=== PATIENT | female | born 1945 | race Caucasian/White ===

== ENCOUNTER → 2019-05-09 | Outpatient (CLI) | payer OTHER ==
[~2019-05-09] VITALS: Ht 172.7 cm; Wt 74.8 kg
[~2019-05-09] MED LIST: ALLEGRA60 MG PO; AMARYL4 MG PO; AMLODIPINE BESYL5 MG PO; ASPIRIN325 PO; BISOPROLOL-HCT1 EACH PO; CALCIUM 600 +1 EAC1 PO; DYAZIDE 37.5-21 EACH PO; ENALAPRIL MALEA20 MG PO; FEMARA2.5 MG PO; JANUVIA 50 MG T50 M1 PO; LEVOTHROID 00.075 M1 PO; LIPITOR 20 MG T20 M1 PO; LISINOPRIL20 MG PO; METFORMIN HCL500 MG PO; PLAVIX 75 MG TA75 M1 PO; PRILOSEC OTC20 MG PO; SIMVASTATIN80 MG PO; TOLTERODINE TART4 MG PO
[2019-05-09 07:09] VITALS: BP 170/84
[2019-05-09 07:15] LABS: HEMATOCRIT 42.2 % (37.0-47.0); HEMOGLOBIN 14.3 gm/dL (12.0-15.0); RBC 4.48 mil/uL (4.20-5.00); RDW 12.5 % (10.5-14.5); WBC 6.4 thou/uL (4.0-11.0)
[2019-05-09 07:24] LABS: CALCIUM 9.7 mg/dL (8.5-10.1); CREATININE 0.7 mg/dL (0.6-1.0); POTASSIUM 4.1 mmol/L (3.5-5.1)
--- NOTE | 2019-05-09 09:04 | EKG ---
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
--- NOTE | 2019-05-10 09:27 | H ---
[facility] [place] [address] HISTORY AND PHYSICAL Name: LUIZ LOVETT Room #: REG [facility]#: [id number] Admission: 05/09/19 Attend Phys: Mirian Spivey MD Discharge: Date of : 43 Report #: [id number] THIS REPORT FOR: //name// CC: MIRIAN Spivey FAM unknown DATE OF SERVICE: 05/09/2019 HISTORY OF PRESENT ILLNESS: The patient is a 73-year-old female, patient of Dr. Mirian Perdue, admitted for some progressive claudication and evidence of significant restenosis or progression of disease in the right SFA. Has had prior drug-coated balloon and atherectomy in 08/2015, moderate left-sided disease, also, some complaints of some chest pain, pressure, dyspnea with some typical and atypical features. He had mild 3-vessel coronary artery disease and a catheterization back in 2015. Longstanding diabetes, hypertension, continued smoking a pack a day. He has been compliant with medications, aspirin, atorvastatin, Plavix, Ziac, metformin, which has been held for this procedure, lisinopril 20, omeprazole, Januvia, Detrol. PAST MEDICAL HISTORY: Positive for CAD, peripheral vascular disease with prior right SFA intervention, diabetes, hypertension, COPD, continued tobacco use, DJD, lumpectomy, left mastectomy. SOCIAL HISTORY: She is , a pack a day smoker, some alcohol use socially. No illicit drug use, 3 cups of coffee a day. ALLERGIES: SULFA AND ANTIBIOTICS. FAMILY HISTORY: Mother of cancer. No premature CAD. PHYSICAL EXAMINATION: GENERAL: Pleasant, alert. VITAL SIGNS: Blood pressure 110/60. Pulse is 80. HEENT: Eyes reveal xanthelasmas. Pharynx is clear. NECK: Shows preserved upstrokes without JVD or bruits. LUNGS: Clear with prolonged expiratory phase. CARDIOVASCULAR: Distant heart sounds, S1, S2. ABDOMEN: Soft. No HSM or abdominal bruit. EXTREMITIES: No edema. Distal pulses cannot palpate the right DP or PT. Left is markedly diminished. SKIN: Warm and dry. There is no skin breakdown or ulcers. MUSCULOSKELETAL: Generalized arthritic changes. ASSESSMENT: 1. Peripheral vascular disease with progressive right lower extremity [facility] [address] [place] [address] HISTORY AND PHYSICAL Name: RACHELLLUIZ Ann Room #: [facility]#: [id number] Admission: 05/09/19 Attend Phys: Mirian Spivey MD Discharge: Date of : 43 Report #: [id number] claudication. 2. Suspected coronary artery disease. 3. Hypertension. 4. Hypercholesterolemia. 5. Diabetes. 6. Chronic obstructive pulmonary disease. 7. Continued tobacco. RECOMMENDATIONS AND PLAN: We will proceed to the catheterization lab to delineate the anatomy, lower extremity runoff. Intervention to the right SFA coronary angiography with her possible anginal type symptoms. Risks, benefits, alternatives were discussed with the patient. She elected to proceed. Dr. Spivey will follow with me in the catheterization lab. Thank you for asking me to assist in the care of this patient. <ELECTRONICALLY SIGNED> By: Ed Keith MD, FACC 05/10/19926 2 7 Ed Keith MD, FACC /nt
--- NOTE | 2019-05-10 12:43 | CATHLAB ---
[facility] [place] [address] INVASIVE PROCEDURE REPORT Name: LUIZ LOVETT Room #: REG [facility]#: [id number] Admission: 05/09/19 Attend Phys: Mikael Spivey, Discharge: Date of : 43 Report #: [id number] THIS REPORT FOR: //name// APPROVED REPORT Study performed: 05/09/2019 07:44:11 Patient Details Patient Status: Out-Patient Room #: The patient is a 73 year-old female Event Personnel Ed Keith Ticket Taker [employer], Mine Hartman RN RN, Carmela Mills RTR, REHANA Perrin, Hemalatha Araujo RTR Scrub, Mikael Rios Burkart, David Interventional Radiologist Procedures Performed Left Heart Cath w/or w/o Coronaries [id number] [facility] Indication Chest pain Procedure Narrative The Right Groin^ was infiltrated with 1% Lidocaine subcutaneous anesthesia. A SHEATH BRITE-TIP 6F X 11CM ([id number]) sheath was inserted into the LFA^. Coronary angiography was performed using coronary diagnostic catheters. The right coronary system was accessed and visualized with a JR4 catheter. The left coronary system was accessed and visualized with a JL4 catheter. The left ventricle was accessed and visualized with a PIGTAIL catheter. Left ventricular/Aortic Valve gradient assessed via catheter pullback. Left ventriculogram was performed in 30 degree projection. Hemostasis was obtained with manual pressure following sheath removal without any complications. The patient tolerated the procedure well and there were no complications associated with the procedure. There was no hematoma. Intraoperative Conscious Sedation Sedation start time: 8.39 Case end Time: 8.55 Fentanyl 50 mcg Versed 1 mg Fluoro Time: 9.46 minutes Dose: DAP 72173.00 cGycm2 284 mGy [facility] [address] [place] [address] INVASIVE PROCEDURE REPORT Name: LUIZ LOVETT Room #: REG [facility]#: [id number] Admission: 05/09/19 Attend Phys: Mikael Spivey, Discharge: Date of : 43 Report #: [id number] Contrast Type and Amount: Visipaque 130 ml Hemodynamics The aortic pressure is 146/53 mmHg with a mean of 87 mmHg. The left ventricular pressure is 137/11 mmHg with a mean of mmHg. The left ventricular end diastolic pressure is 21 mmHg. There was no gradient across the aortic valve upon pullback. Pullback from the left ventricle to the aorta revealed no gradient across the aortic valve. PCI Technique Lesion Percutaneous coronary intervention was performed on the Unspecified. Conclusion #1 normal left ventricular size and systolic function EF 60% #2 left main widely patent giving rise to LAD and circumflex #3 LAD with mild irregularities extends around the apex #4 circumflex OM nondominant with mild disease #5 dominant right coronary with mild calcification no high-grade disease Recognitions and plan: Continue aggressive risk factor modification no indication for coronary intervention. <ELECTRONICALLY SIGNED> By: Ed Keith MD, FACC 05/10/191241 41 41 Ed Keith MD, FACC /INF
== END | disposition home or self-care (01) ==
LOC: CATH 06:36
PROVIDERS: Nuclear Medicine Nuclear Cardiology
DX: R07.9 Chest pain, unspecified (principal); I25.10 Atherosclerotic heart disease of native coronary artery without angina pectoris; I70.211 Atherosclerosis of native arteries of extremities with intermittent claudication, right leg; I70.238 Atherosclerosis of native arteries of right leg with ulceration of other part of lower leg; L97.919 Non-pressure chronic ulcer of unspecified part of right lower leg with unspecified severity; I10 Essential (primary) hypertension; I70.1 Atherosclerosis of renal artery; M19.90 Unspecified osteoarthritis, unspecified site; J44.9 Chronic obstructive pulmonary disease, unspecified; E11.51 Type 2 diabetes mellitus with diabetic peripheral angiopathy without gangrene; E78.5 Hyperlipidemia, unspecified; E78.00 Pure hypercholesterolemia, unspecified; F17.210 Nicotine dependence, cigarettes, uncomplicated; Z88.2 Allergy status to sulfonamides; Z79.82 Long term (current) use of aspirin; Z79.899 Other long term (current) drug therapy; Z88.8 Allergy status to other drugs, medicaments and biological substances; Z98.890 Other specified postprocedural states

== ENCOUNTER → 2019-08-16 | Outpatient (CLI) | payer OTHER | LOC: SJCVCIMAG 10:02 → SJCVC 10:49 → SJCVCIMAG 10:49 | DX: I70.202 Unspecified atherosclerosis of native arteries of extremities, left leg (principal); I10 Essential (primary) hypertension; I25.10 Atherosclerotic heart disease of native coronary artery without angina pectoris; E78.00 Pure hypercholesterolemia, unspecified; E11.9 Type 2 diabetes mellitus without complications; Z95.828 Presence of other vascular implants and grafts; Z72.0 Tobacco use; Z90.12 Acquired absence of left breast and nipple; Z79.899 Other long term (current) drug therapy; Z79.82 Long term (current) use of aspirin; Z79.84 Long term (current) use of oral hypoglycemic drugs ==

== ENCOUNTER → 2020-02-21 | Outpatient (CLI) | payer OTHER | LOC: SJCVCIMAG 09:10 | PROVIDERS: ATTEND Internal Medicine Cardiovascular Disease | DX: I70.203 Unspecified atherosclerosis of native arteries of extremities, bilateral legs (principal); I65.23 Occlusion and stenosis of bilateral carotid arteries; I73.9 Peripheral vascular disease, unspecified; I25.10 Atherosclerotic heart disease of native coronary artery without angina pectoris; I10 Essential (primary) hypertension; E78.00 Pure hypercholesterolemia, unspecified; E11.9 Type 2 diabetes mellitus without complications ==

== ENCOUNTER → 2020-02-23 | Outpatient (CLI) | payer OTHER ==
[~2020-02-23] VITALS: Ht 172.7 cm; Wt 74.8 kg
[2020-02-23 09:03] VITALS: BP 140/45
[2020-02-23 09:29] LABS: HEMOGLOBIN 13.7 gm/dL (12.0-15.0); MCH 33.1 pg (26.0-34.0); MCHC 34.1 g/dL (28.0-37.0); RBC 4.13 mil/uL (4.20-5.00); RDW 12.4 % (10.5-14.5); WBC 4.6 thou/uL (4.0-11.0)
[2020-02-23 09:35] LABS: CALCIUM 9.1 mg/dL (8.5-10.1); CREATININE 0.8 mg/dL (0.6-1.0); POTASSIUM 4.3 mmol/L (3.5-5.1)
== END | disposition home or self-care (01) ==
LOC: CATH 07:48
PROVIDERS: ATTEND Nuclear Medicine Nuclear Cardiology
DX: I70.213 Atherosclerosis of native arteries of extremities with intermittent claudication, bilateral legs (principal); I70.1 Atherosclerosis of renal artery; I10 Essential (primary) hypertension; I25.10 Atherosclerotic heart disease of native coronary artery without angina pectoris; E11.9 Type 2 diabetes mellitus without complications; E78.5 Hyperlipidemia, unspecified; E78.00 Pure hypercholesterolemia, unspecified; Z98.890 Other specified postprocedural states; Z79.899 Other long term (current) drug therapy; Z79.82 Long term (current) use of aspirin; Z88.2 Allergy status to sulfonamides

== ENCOUNTER → 2020-11-06 | Outpatient (CLI) | payer OTHER | LOC: SJCVCIMAG 10:47 → SJCVC 10:47 | PROVIDERS: ATTEND Internal Medicine Cardiovascular Disease | DX: I70.203 Unspecified atherosclerosis of native arteries of extremities, bilateral legs (principal); E11.51 Type 2 diabetes mellitus with diabetic peripheral angiopathy without gangrene; I77.9 Disorder of arteries and arterioles, unspecified; I25.10 Atherosclerotic heart disease of native coronary artery without angina pectoris; I10 Essential (primary) hypertension; E78.00 Pure hypercholesterolemia, unspecified; I65.23 Occlusion and stenosis of bilateral carotid arteries; F17.210 Nicotine dependence, cigarettes, uncomplicated; Z88.2 Allergy status to sulfonamides; Z72.89 Other problems related to lifestyle; Z79.899 Other long term (current) drug therapy; Z79.82 Long term (current) use of aspirin; Z79.84 Long term (current) use of oral hypoglycemic drugs; Z95.820 Peripheral vascular angioplasty status with implants and grafts ==

== ENCOUNTER → 2021-09-03 | Outpatient (CLI) | payer OTHER | END | disposition home or self-care (01) | LOC: SJCVCIMAG 13:43 | PROVIDERS: ATTEND Internal Medicine Cardiovascular Disease | DX: I65.23 Occlusion and stenosis of bilateral carotid arteries (principal); I70.202 Unspecified atherosclerosis of native arteries of extremities, left leg; I77.9 Disorder of arteries and arterioles, unspecified; I25.10 Atherosclerotic heart disease of native coronary artery without angina pectoris; I10 Essential (primary) hypertension; E78.00 Pure hypercholesterolemia, unspecified; E11.9 Type 2 diabetes mellitus without complications; F17.210 Nicotine dependence, cigarettes, uncomplicated; Z72.89 Other problems related to lifestyle; Z79.82 Long term (current) use of aspirin; Z79.84 Long term (current) use of oral hypoglycemic drugs; Z79.899 Other long term (current) drug therapy ==